=== PATIENT | male | born 1970 | race American Indian/Alaskan Native ===

== ENCOUNTER 2020-08-10 02:59 | Emergency (ER) | payer OTHER ==
--- NOTE | 2020-08-10 04:32 | Emergency Department Report ---
ED Extremity Problem HPI - General Stated complaint: POSS AIR UNDER UNDER SKIN CAUSED BY WORK ACCIDENT - History of Present Illness Initial comments: Patient is a 49-year-old -Citizen Of [place] male with no past medical history who presents to the ED with complaint of acute onset persistent left forearm pain after air under pressure blue heavily on his left forearm about 3 hours ago while at work. Patient states that the air escape from a compressed machine and blue onto his left forearm causing significant pain. Patient denies numbness and tingling or weakness of left forearm, fall, traumatic injury, nausea and vomiting, chest pain, shortness of breath, neck pain, back pain, change in vision or syncope. MD Complaint: extremity pain (Left forearm pain) -: Sudden, hour(s) (3) Location: upper extremity (Left forearm) History of Same: No -: Yes myalgia, No fever, No associated dyspnea, No associated chest pain Radiation: distal Severity scale (0 -10): 4 Quality: aching, sharp Consistency: constant Improves with: nothing Worsens with: palpation Associated Symptoms: denies other symptoms, myalgias. denies: chest pain, shortness of breath, fever, arthralgias - Related Data Previous Rx's Medication Instructions Recorded Last Taken Type Cyclobenzaprine [Flexeril] 10 mg PO TID PRN #15 tablet 08/10/20 Unknown Rx Ibuprofen [Motrin] 600 mg PO Q8H PRN #30 tablet 08/10/20 Unknown Rx ED Review of Systems ROS: Stated complaint: POSS AIR UNDER UNDER SKIN CAUSED BY WORK ACCIDENT Other details as noted in HPI Constitutional: denies: chills, fever Eyes: denies: eye pain, eye discharge, vision change ENT: denies: ear pain, throat pain Respiratory: denies: cough, shortness of breath, wheezing Cardiovascular: denies: chest pain, palpitations Endocrine: no symptoms reported Gastrointestinal: denies: abdominal pain, nausea, diarrhea Genitourinary: denies: urgency, dysuria Musculoskeletal: arthralgia (Left forearm pain). denies: back pain, joint swelling Skin: denies: rash, lesions Neurological: denies: headache, weakness, paresthesias Psychiatric: denies: anxiety, depression Hematological/Lymphatic: denies: easy bleeding, easy bruising ED Past Medical Hx - Medications Home Medications: Home Medications Medication Instructions Recorded Confirmed Last Taken Type Cyclobenzaprine [Flexeril] 10 mg PO TID PRN #15 tablet 08/10/20 Unknown Rx Ibuprofen [Motrin] 600 mg PO Q8H PRN #30 tablet 08/10/20 Unknown Rx ED Physical Exam - General General appearance: alert, in no apparent distress - Head Head exam: Present: atraumatic, normocephalic, normal inspection - Eye Eye exam: Present: normal appearance, PERRL, EOMI Pupils: Present: normal accommodation - ENT ENT exam: Present: normal exam, normal orophraynx, mucous membranes moist, TM's normal bilaterally, normal external ear exam - Neck Neck exam: Present: normal inspection, full ROM - Respiratory Respiratory exam: Present: normal lung sounds bilaterally. Absent: respiratory distress, wheezes, rales, rhonchi, chest wall tenderness, accessory muscle use, decreased breath sounds, prolonged expiratory - Cardiovascular Cardiovascular Exam: Present: normal rhythm, bradycardia, normal heart sounds. Absent: systolic murmur, diastolic murmur, rubs, gallop - GI/Abdominal GI/Abdominal exam: Present: soft, normal bowel sounds. Absent: distended, tenderness, guarding, hyperactive bowel sounds, hypoactive bowel sounds - Extremities Exam Extremities exam: Present: normal inspection, full ROM, tenderness (Palpable moderate left forearm tenderness), normal capillary refill - Back Exam Back exam: Present: normal inspection, full ROM. Absent: tenderness, CVA tende rness (R), CVA tenderness (L), muscle spasm, paraspinal tenderness, vertebral tenderness - Neurological Exam Neurological exam: Present: alert, oriented X3, CN II-XII intact, normal gait, reflexes normal - Psychiatric Psychiatric exam: Present: normal affect, normal mood, anxious - Skin Skin exam: Present: warm, dry, intact, normal color. Absent: rash ED Medical Decision Making - Medical Decision Making This is a 49-year-old -Citizen Of [place] male with no past medical history who presents to the ED with complaint of acute onset persistent left forearm pain after air under pressure blue heavily on his left forearm about 3 hours ago while at work. Patient states that the air escape from a compressed machine and blue onto his left forearm causing significant pain. In the ED, patient is alert and oriented x3 and is not in any distress. Patient with history and physical exam findings, patient symptoms are due to contusion of left forearm and muscle spasm or muscle strain of left forearm following injury due to contu isabella of left forearm with wrist Pain air under pressure from a compressed machine. Patient was discharged home on pain medication and muscle relaxants and was advised to follow-up with his primary care physician in 5 to 7 days for reevaluation or return to the ED immediately if symptoms get worse. - Differential Diagnosis Muscle strain; muscle spasm; contusion Critical care attestation.: If time is entered above; I have spent that time in minutes in the direct care of this critically ill patient, excluding procedure time. ED Disposition Clinical Impression: Contusion of left forearm, initial encounter Muscle strain of left forearm Qualifiers: Encounter type: initial encounter Qualified Code(s): S56.912A - Strain of unspecified muscles, fascia and tendons at forearm level, left arm, initial encounter Disposition: TO HOME OR SELFCARE Is pt being admited?: No Does the pt Need Aspirin: No Condition: Stable Instructions: Muscle Strain, [id number], Contusion, [id number] Additional Instructions: Your injuries are due to muscle strain and muscle spasm of left forearm. Therefore take medication as needed for pain, drink plenty of fluids and follow- up with your primary care physician in 5 to 7 days for reevaluation. Return to the ED immediately if symptoms get worse. Prescriptions: Cyclobenzaprine [Flexeril] 10 mg PO TID PRN #15 tablet PRN Reason: Muscle Spasm Ibuprofen [Motrin] 600 mg PO Q8H PRN #30 tablet PRN Reason: Pain Referrals: [facility] [Provider Group] - 3-5 Days Forms: Work/School Release Form(ED) Time of Disposition: 04:33 Print Language: COMORAN
[2020-08-10 04:47] VITALS: BP 129/74
== END 2020-08-10 05:05 | disposition home or self-care (01) ==
LOC: ED 02:59
DX: S56.912A Strain of unspecified muscles, fascia and tendons at forearm level, left arm, initial encounter (principal); Z79.1 Long term (current) use of non-steroidal anti-inflammatories (NSAID); Z79.899 Other long term (current) drug therapy; X58.XXXA Exposure to other specified factors, initial encounter; Y93.89 Activity, other specified; Y92.89 Other specified places as the place of occurrence of the external cause; Y99.8 Other external cause status
CPT/HCPCS: 99282